=== PATIENT | male | born 1995 | race Caucasian/White ===

== ENCOUNTER 2021-04-18 15:09 | Inpatient (IN) | payer OTHER ==
[~2021-04-18] VITALS: Ht 172.7 cm; Wt 81.1 kg
[2021-04-18 15:59] LABS: HEMATOCRIT 44.7 % (42.0-52.0); HEMOGLOBIN 15.4 g/dl (13.5-17.5); MEAN CORPUSCULAR HEMOGLOBIN 28.8 pg (27.0-33.0); MEAN CORPUSCULAR HGB CONC 34.5 g/dl (32.0-36.5); MEAN CORPUSCULAR VOLUME 83.6 fl (80.0-96.0); PLATELET COUNT, AUTOMATED 258 10^3/uL (150-450); RED BLOOD COUNT 5.35 10^6/uL (4.30-6.10); WHITE BLOOD COUNT 6.6 10^3/uL (4.0-10.0)
[2021-04-18 16:25] LABS: AMPHETAMINES LEVEL URINE NEGATIVE (NEGATIVE); BARBITURATES URINE NEGATIVE (NEGATIVE); BENZODIAZEPINES URINE NEGATIVE (NEGATIVE); CANNABINOIDS URINE NEGATIVE (NEGATIVE); COCAINE METABOLITE URINE NEGATIVE (NEGATIVE); METHADONE URINE NEGATIVE (NEGATIVE); OPIATES URINE NEGATIVE (NEGATIVE); PHENCYCLIDINE URINE NEGATIVE (NEGATIVE)
[2021-04-18 16:37] LABS: BLOOD UREA NITROGEN 10 MG/DL (7-18); GLUCOSE, FASTING 72 MG/DL (70-100)
[2021-04-18 16:38] LABS: ACETAMINOPHEN LEVEL < 2.0 UG/ML (10.0-30.0); ALBUMIN 4.3 GM/DL (3.2-5.2); ALT/SGPT 20 U/L (12-78); BILIRUBIN,DIRECT < 0.1 MG/DL (0.0-0.2); BILIRUBIN,TOTAL 0.3 MG/DL (0.2-1.0); CALCIUM LEVEL 9.1 MG/DL (8.5-10.1); CARBON DIOXIDE LEVEL 32 MEQ/L (21-32); CHLORIDE LEVEL 104 MEQ/L (98-107); ETHYL ALCOHOL (ETHANOL) 0.003 % (0.000-0.010); GLOMERULAR FILTRATION RATE > 60.0 (>60); SALICYLATE LEVEL < 1.7 MG/DL (5.0-30.0); SODIUM LEVEL 139 MEQ/L (136-145); TOTAL PROTEIN 7.7 GM/DL (6.4-8.2)
[2021-04-18] MEDS ORDERED: HOME MED LIST COMPLETE! XX SCH (17:00)
[2021-04-18] MEDS ORDERED: traZODone 50 MG TAB PO PRN (17:50)
[2021-04-18] MEDS ORDERED: MOM 30ML SUSPENSION UDC PO PRN (17:50)
[2021-04-18] MEDS ORDERED: MAALOX 30 ML SUSP *UDC PO PRN (17:50)
[2021-04-18] MEDS ORDERED: ACETAMINOPHEN TAB 650MG DOSE (2X325MG) PO PRN (17:50)
[2021-04-18 18:44] LABS: RSV AMPLIFICATION NEGATIVE (NEGATIVE)
[2021-04-18 20:11] VITALS: BP 138/89
[2021-04-19 06:15] VITALS: BP 132/68
--- NOTE | 2021-04-19 10:29 | MHHPEPDOC ---
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 Mariano reports that he has had periods of depressed mood in his life but never as strong as in the past several months, he endorses multiple stressors including failing health of his parents along with increased work burden within the . 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 In the past several weeks he has began experiencing suicidal ideation which he states he has never before experienced in his life, he has had thoughts about taking an overdose of [id number] medications with intent to end his life but has not gone so far as to collect medications at this time. [facility] who recommended that he be brought to the emergency room for evaluation. He continues to report intense depressed mood along with some thoughts of suicide, but states that they are less than they were prior to his admission as he feels that he is in a safe place now and has people he can talk to if he needs to him. We explored the idea of medications, however at present he would like to begin exploring psychotherapy alone but will continue to keep the idea of medications in mind. Was provided with psychoeducation about ways in which we could assist with managing his symptoms if needed. Psychiatric Review of Systems Depression (2 or more weeks): depressed mood, anhedonia, insomnia/hypersomnia, feelings of worthlesness, decreased energy, difficulty concentrating, suicidal thoughts Alesia (4 or more days of): denies Psychosis: denies PTSD: denies Anxiety: stressor related anxiety Anxiety/ 6 months or more of: restlessness, keyed up, easily fatigued, difficulty concentrating, muscle tension, sleep disturbance Past Psychiatric History Previous Psychiatric Diagnosis: Denies a history of previous contact with psychiatric care Previous Psychiatric Admissions: Denies a history of previous psychiatric admissions. Suicide Attempts: Denies a history of suicide attempts or self-injurious behavior. Psychiatric Follow-up: No current follow-up, is willing to attend [facility]. Psychiatric medications: No medications at present. Past Medical History Head Injury: No Seizures: No Hospitalizations: No Surgeries: No Family Medical/Psychiatric HX Psychiatric Disorders: Yes Addiction: Yes Suicide Attemps/Completions: No Addiction History denies Social History Childhood: Reports he had a fair childhood, cares for his parents and his siblings. Endorses that his sister struggles with mental health concerns but is unsure what they are. Abuse/Trauma: No history of trauma reported Current Living Situation: [place] [facility] on [address]. Education: High school and training. Employment: Active duty soldier. Social Support: Reports limited social connections, denies a support system in the area, feels quite alone. Parents are his primary support, states that their health is failing.. Legal: Denies a history of legal concerns. Marital: Unmarried. Mental Status Examination General Appearance: well groomed, appears stated age, hospital scubs/clothing Build: average Demeanor: average Eye Contact: average Activity: average Behavior: cooperative Speech: clear, spontaneous, reg/rate,rhythm,volume Mood: depressed, anxious Mood Depressed Affect: constricted, appropriate, congruent Thought Process: logical/linear Thought Content (Delusions): none reported Thought Content (Other): none reported Thought Content (Aggressive): none reported Perception (Hallucinations): none reported Perception (Other): none reported Cognition (Impairment of): none reported Cognition(Intelligence Est.): average Oriented: Oriented times three Insight: fair Judgment: Good Diagnoses 1. Major depressive disorder, single episode, moderate, with anxious distress A-FIB/CHADSVASC A-FIB History Current/History of A-Fib/PAF?: No Assessment 26-year-old man with multiple recent stressors which have contributed to worsening of mood. Has had periods of sadness in the past, but has never met criteria for a full depressive episode before. Currently is struggling with depressed mood and suicidal ideations, is interested and willing to receive help. Appears to be motivated for change, interested in trying to attempt psychotherapy alone first. Reviewed with him that medications may need to be a part of his treatment, however encouraged him to explore psychotherapy first. We will continue remain available to him as needed. Multiple stressors in his life have contributed to his current presentation, helping him to feel more confident and able to manage the situation at work may also help him with managing stress related to home. Due to his dislike of serving in the [employer] there may also be additional considerations for adjustment disorder, will need to explore further with him as part extended evaluation during this admission. Problem List Problems: (1) Depression with suicidal ideation Status: Acute Initial Treatment Plan 1. Patient was admitted on a 9.39 status. 2. Complete history was obtained. 3. With patients permission, family will be contacted and database will be e xpanded. 4. Patients medication regimen will be reviewed and changed accordingly. 5. Patient will be provided with protected environment. 6. Patient will be treated with individual, group, and milieu therapies. 7. Patient will receive supportive psych-education. 8. Discharge planning will commence immediately. 9. Outpatient follow-up treatment will be strongly recommended. 10. The initial treatment plan will focus initially on: * Depression. * Risk for suicide. ESTIMATED LENGTH OF STAY: 5-7 DAYS. TIME SPENT COUNSELING AND COORDINATING INITIAL CARE: 45 minutes. Tobacco Cessation Screen If Patient is a Smoker Denies history of smoking N/A-No Antipsychotics Vital Signs Vital Signs Date Time Temp Pulse Resp B/P (MAP) Pulse Ox O2 Delivery O2 Flow Rate FiO2 04/19/21 06:15 97.7 77 16 132/68 (89) 99 Room Air Laboratory Data 24H Labs Laboratory Tests 2 04/18/21 15:49: Nucleated Red Blood Cells % (auto) 0.0, Anion Gap 3L, Glomerular Filtration Rate > 60.0, Calcium Level 9.1, Total Bilirubin 0.3, Direct Bilirubin < 0.1, Aspartate Amino Transf (AST/SGOT) 13, Alanine Aminotransferase (ALT/SGPT) 20, Alkaline Phosphatase 84, Total Protein 7.7, Albumin 4.3, Albumin/Globulin Ratio 1.3, Thyroid Stimulating Hormone (TSH) 1.180, Salicylates Level < 1.7L, Urine Opiates Screen NEGATIVE, Urine Methadone Screen NEGATIVE, Acetaminophen Level < 2.0L, Urine Barbiturates Screen NEGATIVE, Urine Phencyclidine Screen NEGATIVE, Urine Amphetamines Screen NEGATIVE, Urine Benzodiazepines Screen NEGATIVE, Urine Cocaine Metabolite Screen NEGATIVE, Urine Cannabinoids Screen NEGATIVE, Ethyl Alcohol Level 0.003 04/18/21 17:48: Coronavirus (COVID-19)(PCR) NEGATIVE, Influenza Type A (RT-PCR) NEGATIVE, Influenza Type B (RT-PCR) NEGATIVE, Respiratory Syncytial Virus (PCR) NEGATIVE CBC/BMP Laboratory Tests 04/18/21 15:49 Medications No Active Prescriptions or Reported Meds Allergies Coded Allergies: No Known Allergies (Unverified , 04/18/21) IOANA SELBY MD Apr 19, 2021 10:29
[2021-04-19 16:30] VITALS: BP 141/84
--- NOTE | 2021-04-19 18:45 | HPEPDOC ---
[facility] Medical History & Physical Date of Admission Apr 19, 2021 Date of Service: Apr 19, 2021 History and Physical CHIEF COMPLAINT: suicidal ideation HISTORY OF PRESENT ILLNESS: PAST MEDICAL HISTORY: Denies SOCIAL HISTORY: Denies nicotine, alcohol or illicit drug abuse. FAMILY HISTORY: Father: PTSD Mother: Lupus, Crohns ALLERGIES: Please see below. REVIEW OF SYSTEMS: Negative except as per HPI HOME MEDICATIONS: Please see below. PHYSICAL EXAMINATION: LABORATORY DATA: See below. IMAGING: MICROBIOLOGY: Please see below. A/P: 26 year old male admitted for suicidal ideation #SI - as per psychiatry Thank you for this consultation. Please re-consult as needed. Vital Signs Vital Signs Date Time Temp Pulse Resp B/P (MAP) Pulse Ox O2 Delivery O2 Flow Rate FiO2 04/19/21 16:30 98.6 68 17 141/84 (103) 99 Room Air Home Medications No Active Prescriptions or Reported Meds Allergies Coded Allergies: No Known Allergies (Unverified , 04/18/21) A-FIB/CHADSVASC A-FIB History Current/History of A-Fib/PAF?: No KASEY VOGEL MD Apr 19, 2021 18:45
[2021-04-20 06:01] VITALS: BP 131/63
--- NOTE | 2021-04-20 12:12 | MHIPNPDOC ---
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 At the time of admission he had planned to end his life by taking giua-wdr-bfvcuof prescription medication. He was admitted over the weekend for safety and stabilization, today he reports improved mood with no thoughts of killing himself today. We had discussed the idea of starting medications yesterday but he wanted some time to think about it, today he states that he would consider the idea of starting medications. We reviewed the use of SSRIs for treatment of depression and anxiety, was educated on the possible side effects such as: Onset GI symptoms, headaches, insomnia, possible increased irritability, serotonin syndrome, possibility of increased suicidal thoughts. Mariano breast understanding of this and agreed that he would consider starting the medication, we discussed that outpatient follow-up would be arranged for him and he would need to speak with his prescriber tomorrow to determine the status of possible time for discharge. VITAL SIGNS: See below. NEW TEST RESULTS: None. CURRENT MEDICATIONS: See below. MENTAL STATUS EXAMINATION: Patient is a 26-year old male, who is dressed in hospital clothes, wearing a mask and compliance with pandemic regulations. He has calm and collected and polite during interview. Speech: Is clear with regular rate, rhythm, and volume. Language skills are intact. Thought processes including: Logical, linear. Thought content: Denies SI today, is interested in leaving the hospital but willing to wait for evaluation with primary team tomorrow. Abstract reasoning, and computation: Intact. Description of associations: Linear. Description of abnormal or psychotic thoughts: Denies SI, denies AVH. Judgment: Good. Insight: Fair. Orientation: X3. Recent and remote memory: Intact. Attention span and concentration: Intact. Mood: "Better today". Affect: Still dysphoric, does appear closer to euthymia than yesterday. Full range, congruent with stated mood and thought content. DIAGNOSES: 1. Major depressive disorder, single episode, moderate, with anxious distress. ASSESSMENT: Mariano appears to be doing slightly better, he acknowledges that some of his improvement may be due to the fact that there is limited stress while here on the unit as he has no responsibilities other than existing and participating in groups if desired. We discussed the use of medications and how they may benefit his treatment, along with speeding up his recovery. He co ntinues to appear to be willing to engage in psychotherapy as well and is motivated for improvement and healing. MANAGEMENT PLAN: Start fluoxetine 20 mg daily, first dose tomorrow. TIME SPENT: 15 minutes. Vital Signs Vital Signs Date Time Temp Pulse Resp B/P (MAP) Pulse Ox O2 Delivery O2 Flow Rate FiO2 04/20/21 06:01 97.3 82 131/63 (85) 99 Room Air 04/19/21 16:30 68 Current Medications Current Medications Medications (Trade) Dose Ordered Sig/Arely Route PRN Reason Start Time Stop Time Status Last Admin Dose Admin Acetaminophen (Tylenol Tab) 650 mg Q6HP PRN PO HEADACHE or MILD DISCOMFORT 04/18/21 17:50 Al Hydrox/Mg Hydrox/Simethicone (Mylanta) 30 ml Q4HP PRN PO HEARTBURN/INDIGESTION 04/18/21 17:50 Home Med (Home Med List Complete!) ASDIRECTED XX 04/18/21 17:00 04/18/21 17:00 DC Magnesium Hydroxide (Milk Of Magnesia) 30 ml DAILYPRN PRN PO CONSTIPATION 04/18/21 17:50 Trazodone HCl (Desyrel) 50 mg QHSP PRN PO INSOMNIA 04/18/21 17:50 Allergies Coded Allergies: No Known Allergies (Unverified , 04/18/21) IOANA SELBY MD Apr 20, 2021 12:12
[2021-04-20] MEDS: FLUoxetine 20 MG CAP PO SCH (12:31)
[2021-04-20 16:36] VITALS: BP 134/77
[2021-04-21 07:11] VITALS: BP 133/84
[2021-04-21] MEDS: FLUoxetine 20 MG CAP PO SCH (09:50)
[2021-04-21] MEDS ORDERED: FLUO20CA22 PO (10:18)
--- NOTE | 2021-04-21 12:07 | MHDSPDOC ---
[facility] Discharge Summary Discharge Summary DATE OF ADMISSION: Apr 18, 2021 at 17:46 DATE OF DISCHARGE: April 21, 2021 at 1158 DISCHARGE DIAGNOSES: 1. Major depressive disorder, single episode, moderate, with anxious distress. 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 At the time of admission he had planned to end his life by taking [id number] prescription medication. He was admitted over the weekend for safety and stabilization, today he reports improved mood with no thoughts of killing himself today. We had discussed the idea of starting medications yesterday but he wanted some time to think about it, today he states that he would consider the idea of starting medications. We reviewed the use of SSRIs for treatment of depression and anxiety, was educated on the possible side effects such as: Onset GI symptoms, headaches, insomnia, possible increased irritability, serotonin syndrome, possibility of increased suicidal thoughts. Mariano wally un derstanding of this and agreed that he would consider starting the medication, we discussed that outpatient follow-up would be arranged for him and he would need to speak with his prescriber tomorrow to determine the status of possible time for discharge. VITAL SIGNS: See below. CONSULTANTS INVOLVED: See Medical H + P by Hospitalist TREATMENT AND PROGRESS ON THE UNIT: Patient was admitted to the [facility] on a 9.39 legal status was afforded the following treatment modalities: 1) Individual Therapy 2) Group Therapy 3) Medication Management 4) Milieu Therapy 5) Safe Environment HOSPITAL COURSE: Patient was admitted to [facility] on a 9.39 legal status. He was admitted for suicidal ideation and depressed mood Patient was started on Prozac and reports mild symptoms of diarrhea. Encouraged patient to continue to take medication and take medications at night. He reports that his mood, anxiety, and intrusive thoughts improved with the admission. Pt attended groups daily during stay. Pts symptoms improved with treatment. On day of discharge pt. reported reduced depression and anxiety, denied insomnia, denied SI/HI, denied hallucinations, and denied delusions. Pt was discharged home with follow-up with [facility]. Pt felt safe for discharge. DISCHARGE ASSESSMENT: In today's interview, patient is alert and oriented, pt.s dress is appropriate. Hygiene and grooming is well-kempt. Smiles on approach and is pleasant and engaged in the interview. Denies depression and anxiety. Denies suicidal and homicidal ideation, planning or intent. Denies and is not observed with prasanna, psychotic symptoms of delusions, bizarre thinking, obsessions, paranoia, ruminations illogical thoughts, flight of ideas or having poor insight and judgement. Reinforced with patient need to abstain from alcohol and drugs but patient denies any substance use. At discharge patient has normal mentation, declines further hospitalization on a voluntary status and meets criteria for discharge today. Discussed indications of medications, potential benefits and risks, alternatives (including no treatment) and questions were encouraged and answered. Patient encouraged to return to hospital if symptoms worsen or change and encouraged to call unit if he/she/they needs to speak to provider for questions regarding medications or care. Patient was quite pleasant in the interview, had future orientation in his communication with provider and states that he is aware that his stressors at work will still be there but feels that today that he can be discharged and reports no intrusive thoughts of self-harm. 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 Speech: Is fluid, conversant, normal rate, tone and volume Language skills are intact Thought processes including: linear and goal oriented Thought content: denies depression and anxiety. Denies suicidal/homicidal ideation, planning or intent. Abstract reasoning, and computation: fair Description of associations: denies, none observed Description of abnormal or psychotic thoughts: denies, none observed. Judgment: fair Insight: fair Orientation: alert and oriented to person, place, time and situation Recent and remote memory: intact Attention span and concentration: good Language: expansive Fund of knowledge: average Mood: Euthymic Mood Affect: reactive Suicide Risk Assessment: 1) Does the patient wish to be ? No 2) Since your admission, have you had any actual thought of killing yourself? No 3) Since your admission, have you been thinking about how you might do this? No 4) Since your admission, have you had these thoughts and had some intention of acting on them? No 5) Since your admission, have you started to work out or worked out the details of how to kill yourself? No 5A) Do you intent to carry out this plan? No and NA 6) Have you ever done anything, started anything, or prepared to do anything with any intent to ? No 6A) How long since your admission did you do any of these? NA MEDICATIONS ON DISCHARGE: See Medication Reconciliation PLAN/FOLLOWUP ARRANGEMENTS: Marika Jeffries [facility] The amount of time spent in the coordination of care for this patient was approximately 25 minutes. ETOH/Disorder Med Rx ETOH/DRUG DISORDER RX: N/A Vital Signs/I&Os Vital Signs Date Time Temp Pulse Resp B/P (MAP) Pulse Ox O2 Delivery O2 Flow Rate FiO2 04/21/21 07:11 98.0 74 18 133/84 (100) 98 Room Air Medications Scheduled Fluoxetine Hcl (Fluoxetine HCl) 20 Mg Capsule, 20 MG PO DAILY for Mood, #7 Allergies Coded Allergies: No Known Allergies (Unverified , 04/18/21) JOHN LEO NP Apr 21, 2021 12:07
== END 2021-04-21 12:23 | disposition home or self-care (01) | DRG 885 ==
LOC: M ED 15:09 → M ED INP 17:46 → M PSY 20:06
PROVIDERS: ADMIT Psychiatry & Neurology Psychiatry; ATTEND Psychiatry & Neurology Psychiatry
DX: F32.1 Major depressive disorder, single episode, moderate (principal); R45.851 Suicidal ideations; Z63.8 Other specified problems related to primary support group; Z56.6 Other physical and mental strain related to work; F43.0 Acute stress reaction; Z20.822 Contact with and (suspected) exposure to COVID-19

== ENCOUNTER 2021-12-01 11:16 | Emergency (ER) | payer OTHER ==
[~2021-12-01] VITALS: Ht 172.7 cm; Wt 87.8 kg
[~2021-12-01 11:16] MED LIST: FLUO20CA22 PO
[2021-12-01 12:13] LABS: BASO % 0.7 % (0.0-1.0); EOS # 0.1 10^3/uL (0.0-0.5); EOS % 2.3 % (0.0-3.0); HEMATOCRIT 46.7 % (42.0-52.0); HEMOGLOBIN 15.9 g/dl (13.5-17.5); LYMPH # 2.1 10^3/uL (1.5-5.0); LYMPH % 35.1 % (24.0-44.0); MEAN CORPUSCULAR VOLUME 85.1 fl (80.0-96.0); MONO # 0.6 10^3/uL (0.0-0.8); MONO % 10.7 % (2.0-8.0); NEUTROPHILS % 50.5 % (36.0-66.0); PLATELET COUNT, AUTOMATED 277 10^3/uL (150-450); RED BLOOD COUNT 5.49 10^6/uL (4.30-6.10)
[2021-12-01 12:39] LABS: ALBUMIN 4.2 GM/DL (3.2-5.2); ALT/SGPT 42 U/L (12-78); BILIRUBIN,DIRECT 0.1 MG/DL (0.0-0.2); BILIRUBIN,TOTAL 0.5 MG/DL (0.2-1.0); BLOOD UREA NITROGEN 10 MG/DL (7-18); CALCIUM LEVEL 9.9 MG/DL (8.5-10.1); CARBON DIOXIDE LEVEL 28 MEQ/L (21-32); CHLORIDE LEVEL 108 MEQ/L (98-107); CREATININE FOR GFR 1.02 MG/DL (0.70-1.30); GLOMERULAR FILTRATION RATE > 60.0 (>60); GLUCOSE, FASTING 73 MG/DL (70-100); LIPASE 141 U/L (73-393); POTASSIUM SERUM 4.3 MEQ/L (3.5-5.1); SODIUM LEVEL 142 MEQ/L (136-145); TOTAL PROTEIN 7.8 GM/DL (6.4-8.2)
[2021-12-01] MEDS ORDERED: ONDA4TAB6 PO (16:23)
[2021-12-01 16:29] VITALS: BP 146/92
== END 2021-12-01 16:31 | disposition home or self-care (01) ==
LOC: M ED 11:16
DX: R11.2 Nausea with vomiting, unspecified (principal); R19.7 Diarrhea, unspecified

== ENCOUNTER 2023-01-21 12:10 | Emergency (ER) | payer OTHER ==
[~2023-01-21] VITALS: Ht 172.7 cm; Wt 91.1 kg
[2023-01-21 12:10] VITALS: BP 147/100; TEMP 98.4; O2SAT 99
[~2023-01-21 12:10] MED LIST changes: +ONDA4TAB6 PO
== END 2023-01-21 15:40 | disposition left against medical advice (07) ==
LOC: M ED 12:10
DX: Z53.21 Procedure and treatment not carried out due to patient leaving prior to being seen by health care provider (principal)